=== PATIENT | female | born 1940 | race Caucasian/White ===

== ENCOUNTER 2017-04-07 09:16 | Emergency (ER) | payer MEDICARE, BC ==
--- NOTE | 2017-04-07 09:49 | ER Document Report ---
ED Neck/Back Problem - General Mode of Arrival: Medic Information source: Patient TRAVEL OUTSIDE OF THE [place] IN LAST 30 DAYS: No - HPI Patient complains to provider of: Pain, Lower back Associated symptoms: Other - see above - General Chief Complaint: Back Pain Stated Complaint: BACK PAIN Time Seen by Provider: 04/07/17 09:40 Notes: Patient is a 76 year old female with a history of chronic back pain presents to the ED via EMS with complaints of "unbearable" right lower back pain that radiates to her left lower back with onset this morning. Patient states she is now unable to ambulate. Patient has an appointment with her PCP but states the pain became unbearable which is why she called EMS. Patient states this morning she has a burning sensation from her low back that radiates up to her neck. Patient was doing a lot bending over yesterday. Patient was given 0.5 mg of Dilaudid and 4mg of Zofran by EMS while en route. Patient states she saw Dr. Smith, orthopedic surgeon for the back pain in her right back and hip and had 5 weeks of physical therapy with no relief. That ended approximately 2 weeks ago and she was then referred to Dr. Swan, Electrical Installation Inspector. She still does not have that appointment. (JOY MORRIS) - Related Data Allergies/Adverse Reactions: phenobarbital [Phenobarbital] Allergy (Mild, Verified 04/14/14 19:12) Hives Sulfa (Sulfonamide Antibiotics) Allergy (Mild, Verified 04/14/14 19:12) Hives moxifloxacin [Moxifloxacin] Allergy (Verified 04/14/14 19:12) moxifloxacin HCl [From Avelox] Allergy (Verified 04/14/14 19:12) Past Medical History - General Information source: Patient - Social History Smoking Status: Never Smoker Family History: CAD - Past Medical History Cardiac Medical History: Reports: Hx Coronary Artery Disease, Hx Hypercholesterolemia, Hx Hypertension Endocrine Medical History: Reports: Hx Hypothyroidism GI Medical History: Reports: Hx Gastroesophageal Reflux Disease, Hx Ulcer Musculoskeltal Medical History: Reports Hx Arthritis Past Surgical History: Reports: Hx Appendectomy, Hx Cholecystectomy, Hx Hysterectomy, Hx Tonsillectomy - Immunizations Hx Diphtheria, Pertussis, Tetanus Vaccination: Yes Hx Pneumococcal Vaccination: 08/24/08 Review of Systems - Review of Systems Constitutional: No symptoms reported EENT: No symptoms reported Cardiovascular: No symptoms reported Respiratory: No symptoms reported Gastrointestinal: No symptoms reported Genitourinary: No symptoms reported Female Genitourinary: No symptoms reported Musculoskeletal: See HPI, Back pain Skin: No symptoms reported Hematologic/Lymphatic: No symptoms reported Neurological/Psychological: No symptoms reported Physical Exam - General General appearance: Appears well, Alert In distress: None - HEENT Head: Normocephalic, Atraumatic Eyes: Normal Extraocular movements intact: Yes Pupils: PERRL - Respiratory Respiratory status: No respiratory distress - Cardiovascular Rhythm: Regular - Abdominal Distension: No distension - Back Back: Tender - in low back - Extremities General upper extremity: Normal inspection, Normal ROM General lower extremity: Normal inspection, Normal ROM. No: Edema - Neurological Neuro grossly intact: Yes - Psychological Associated symptoms: Depressed - Skin Skin Temperature: Warm Skin Moisture: Dry Skin Color: Normal Course - Re-evaluation Re-evalutation: 04/07/17 10:51 The patient's states that her back does feel better after some additional pain medication. Her relative is here now requesting MRI stating that her orthopedic doctor wanted her to get one. There is no emergent need for an MRI. They were advised that it can be done as an outpatient and if her doctor wanted an MRI, he should have ordered it. They state that he might have ordered it but no one has got back with her. She is advised to take pain medication as prescribed and not be bending over picking field peas or any other activity that could worsen her low back pain. ( LAINE SERRATO) - Vital Signs Vital signs: Temp Pulse Resp BP Pulse Ox 98.2 F 69 15 135/73 H 96 04/07/17 09:24 04/07/17 09:24 04/07/17 09:24 04/07/17 09:24 04/07/17 09:24 Discharge - Discharge Clinical Impression: Acute exacerbation of chronic low back pain Condition: Stable Disposition: HOME, SELF-CARE Additional Instructions: Your history and physical exam suggests that you exacerbated your chronic low back pain when you were bending over picking peas recently. You will be prescribed some pain medication to help with your discomfort. You should avoid doing activities that will make the back feel worse. Be sure to call Dr. Cooper to schedule your follow-up appointment, and call your orthopedic surgeon to inquire about the MRI he was requesting. RETURN TO THE EMERGENCY ROOM IF ANY NEW OR WORSENING SYMPTOMS. Prescriptions: Hydrocodone/Acetaminophen [[place] 5-325 mg Tablet] 1 tab PO Q4 PRN #15 tablet PRN Reason: Referrals: KIRTI LIRIANO MD [Primary Care Provider] - Follow up as needed Scribe Attestation: 04/07/17 10:57 I personally performed the services described in the documentation, reviewed and edited the documentation which was dictated to the scribe in my presence, and it accurately records my words and actions. (LAINE SERRATO) Scribe Documentation - Scribe Written by Liborio:: liborio Samson, 04/07/2017, 0953 acting as scribe for :: Lluvia
[2017-04-07] MEDS ORDERED: HYDROMORPHONE HCL INJ/PF 2 MG/ML AMPULE IV ONE (09:52)
[2017-04-07] MEDS ORDERED: KETOROLAC TROMETHAMINE INJ/PF 30 MG/1 ML SDV IV ONE (09:52)
[2017-04-07 11:29] VITALS: BP 130/78
== END 2017-04-07 11:30 | disposition home or self-care (01) ==
LOC: ER 09:16
DX: G89.29 Other chronic pain (principal); M54.5 Low back pain; I25.10 Atherosclerotic heart disease of native coronary artery without angina pectoris; E78.00 Pure hypercholesterolemia, unspecified; I10 Essential (primary) hypertension; Z88.2 Allergy status to sulfonamides; Z90.49 Acquired absence of other specified parts of digestive tract; Z90.710 Acquired absence of both cervix and uterus
CPT/HCPCS: 99283; 96374; 96375; J1885; J1170

== ENCOUNTER → 2017-05-08 | Outpatient (CLI) | payer MEDICARE, BC ==
--- NOTE | 2017-05-08 12:15 | RADIOLOGY REPORT (SQ) ---
EXAM DESCRIPTION: MRI LUMBAR SPINE WITHOUT COMPLETED DATE/TIME: 05/08/2017 11:37 am REASON FOR STUDY: LUMBAR RADICULOPATHY M54.17 RADICULOPATHY, LUMBOSACRAL REGION COMPARISON: None. TECHNIQUE: Sagittal and Axial imaging includes T1, T2, STIR and gradient echo sequences. Coronal T2/ HASTE imaging. LIMITATIONS: Motion. FINDINGS: VISUALIZED UPPER ABDOMEN: Limited evaluation. No acute or suspicious findings suggested. SEGMENTATION: No transitional anatomy. The lowest well-developed disc space is labeled L5-S1. ALIGNMENT: Mild convex left scoliosis. VERTEBRAE: Intact. BONE MARROW: No significant marrow abnormality. DISC SIGNAL: Desiccation multiple levels. POSTERIOR ELEMENTS: Intact. HARDWARE: None in the spine. CORD AND CONUS: Normal in size and signal intensity. Conus at the appropriate level. SOFT TISSUES: No aortic aneurysm seen. No bulky retroperitoneal adenopathy or mass. No paraspinal mas s or fluid. L1-L2: Small right paracentral disc protrusion contacts the transiting right L2 nerve root in the can al. L2-L3: No significant spinal stenosis or exit foraminal stenosis. L3-L4: Ventral and dorsal impression on the thecal sac due to disc osteophyte complex and ligament th ickening. Mild left and moderate right neural foraminal narrowing. L4-L5: Ventral impression on the thecal sac due to disc bulge. Facet arthropathy. Mild neural pawel inal narrowing. L5-S1: Small left paracentral and slight downward disc protrusion indenting the ventral margin of the thecal sac. There is contact with the transiting left S1 nerve root in the canal. Mild neural fora abel narrowing bilaterally. LOWER THORACIC: Incompletely imaged. No stenosis seen. SACRUM: Visualized upper sacrum intact. OTHER: No other significant findings. IMPRESSION: Spondylosis and facet arthropathy. Small disc herniations at L1-2 and L5-S1. TECHNICAL DOCUMENTATION: JOB ID: [id number] 2015 [employer]- All Rights Reserved
== END ==
LOC: RAD 10:24
PROVIDERS: ATTEND Chiropractor
DX: M54.17 Radiculopathy, lumbosacral region (principal)
CPT/HCPCS: 72148

== ENCOUNTER → 2017-07-02 | Outpatient (CLI) | payer MEDICARE, BC ==
--- NOTE | 2017-07-02 13:02 | RADIOLOGY REPORT (SQ) ---
EXAM DESCRIPTION: CHEST PA/LATERAL COMPLETED DATE/TIME: 07/02/2017 12:40 pm REASON FOR STUDY: SHORTNESS OF BREATH COMPARISON: 03/08/2016 EXAM PARAMETERS: NUMBER OF VIEWS: two views TECHNIQUE: Digital Frontal and Lateral radiographic views of the chest acquired. RADIATION DOSE: NA LIMITATIONS: none FINDINGS: LUNGS AND PLEURA: No opacities, masses or pneumothorax. No pleural effusion. MEDIASTINUM AND HILAR STRUCTURES: No masses or contour abnormalities. HEART AND VASCULAR STRUCTURES: Heart normal size. No evidence for failure. BONES: No acute findings. HARDWARE: None in the chest. OTHER: No other significant finding. IMPRESSION: NO SIGNIFICANT RADIOGRAPHIC FINDING IN THE CHEST. TECHNICAL DOCUMENTATION: JOB ID: [id number] [employer]- All Rights Reserved
[2017-07-02 13:35] LABS: ABSOLUTE BASOPHILS # (AUTO) 0.1 10^3/uL (0.0-0.2); ABSOLUTE EOSINOPHILS # (AUTO) 0.1 10^3/uL (0.0-0.6); ABSOLUTE LYMPHOCYTES (AUTO) 1.6 10^3/uL (0.5-4.7); ABSOLUTE MONOCYTES (AUTO) 0.5 10^3/uL (0.1-1.4); ABSOLUTE NEUT (AUTO) 4.1 10^3/uL (1.7-8.2); BASOPHILS % (AUTO) 0.9 % (0-2); EOSINOPHILS % (AUTO) 2.1 % (0-6); HEMATOCRIT 39.8 % (36.0-47.0); HEMOGLOBIN 13.5 g/dL (12.0-15.5); HGB HCT DIFFERENCE 0.7; LYMPHOCYTES % (AUTO) 24.9 % (13-45); MEAN CORPUSCULAR HEMOGLOBIN 28.1 pg (27.0-33.4); MEAN CORPUSCULAR HGB CONC 33.9 g/dL (32.0-36.0); MEAN CORPUSCULAR VOLUME 83 fl (80-97); MONOCYTES % (AUTO) 8.3 % (3-13); RED BLOOD COUNT 4.81 10^6/uL (3.72-5.28); RED CELL DISTRIBUTION WIDTH 13.6 % (11.5-14.0); SEGMENTED NEUTROPHILS % (AUTO) 63.8 % (42-78); WHITE BLOOD COUNT 6.5 10^3/uL (4.0-10.5)
[2017-07-02 13:56] LABS: ALANINE AMINOTRANSFERASE 30 U/L (9-52); ALBUMIN 4.4 g/dL (3.5-5.0); ALKALINE PHOSPHATASE 74 U/L (38-126); ANION GAP 12 (5-19); ASPARTATE AMINO TRANSFERASE 25 U/L (14-36); BILIRUBIN,DIRECT 0.3 mg/dL (0.0-0.4); BILIRUBIN,TOTAL 0.6 mg/dL (0.2-1.3); BLOOD UREA NITROGEN 11 mg/dL (7-20); CALCIUM 9.7 mg/dL (8.4-10.2); CARBON DIOXIDE 27 mmol/L (22-30); CHLORIDE 102 mmol/L (98-107); CREATININE RESULT 0.57 mg/dL (0.52-1.25); GLUCOSE 84 mg/dL (75-110); POTASSIUM 4.5 mmol/L (3.6-5.0); SODIUM 141.4 mmol/L (137-145); TOTAL PROTEIN 7.2 g/dL (6.3-8.2)
== END ==
LOC: OD 11:54
PROVIDERS: ATTEND Physician Assistant Medical
DX: R07.9 Chest pain, unspecified (principal); R06.02 Shortness of breath
CPT/HCPCS: 36415; 71020; 80053; 83880; 85025

== ENCOUNTER → 2017-10-21 | Outpatient (CLI) | payer MEDICARE, BC ==
--- NOTE | 2017-10-21 11:58 | RADIOLOGY REPORT (SQ) ---
EXAM DESCRIPTION: VENOUS UNILATERAL LOWER COMPLETED DATE/TIME: 10/21/2017 11:42 am REASON FOR STUDY: LLE PAIN M79.605 PAIN IN LEFT LEG R22.42 LOCALIZED SWELLING, MASS AND LUMP, LEFT LOWER LIMB COMPARISON: None. TECHNIQUE: Dynamic and static melgar scale and color images acquired of the left leg venous system. Se lected spectral images acquired with additional compression and augmentation maneuvers. The contralat eral common femoral vein and saphenofemoral junction were also imaged. Images stored on PACS. LIMITATIONS: None. FINDINGS: COMMON FEMORAL: Normal phasicity, compression and augmentation. No visualized echogenic ma terial on melgar scale. No defects on color images. FEMORAL: Normal compression and augmentation. No visualized echogenic material on melgar scale. No defe cts on color images. POPLITEAL: Normal compression, augmentation. No visualized echogenic material on melgar scale. No defec ts on color images. CALF VESSELS: Normal compression, augmentation. No visualized echogenic material on melgar scale. No de fects on color images. GSV and SSV: Normal compression, augmentation. No visualized echogenic material on melgar scale. No def ects on color images. ANY DEEP VENOUS INSUFFICIENCY: Not evaluated. ANY EVIDENCE OF POPLITEAL CYST: No. OTHER: No other significant finding. CONTRALATERAL COMMON FEMORAL VEIN AND SAPHENOFEMORAL JUNCTION: Normal phasicity, compression and augmentation. No visualized echogenic material on melgar scale. No de fects on color images. IMPRESSION: NO EVIDENCE DVT OR SVT IN THE LEFT LEG. TECHNICAL DOCUMENTATION: JOB ID: [id number] [employer]- All Rights Reserved Reading location - IP/workstation name: [email or web address]
== END ==
LOC: SP 11:02
PROVIDERS: ATTEND Family Medicine
DX: M79.605 Pain in left leg (principal); R22.42 Localized swelling, mass and lump, left lower limb
CPT/HCPCS: 93971

== ENCOUNTER → 2017-12-17 | Outpatient (CLI) | payer MEDICARE, BC ==
--- NOTE | 2017-12-17 14:26 | RADIOLOGY REPORT (SQ) ---
EXAM DESCRIPTION: MRI LUMBAR SPINE WITHOUT COMPLETED DATE/TIME: 12/17/2017 1:01 pm REASON FOR STUDY: OTHER INTERVERTEBRAL DISC DISORDERS, LUMBAR REGION M51.86 OTHER INTERVERTEBRAL DI SC DISORDERS, LUMBAR REGION COMPARISON: 05/08/2017. TECHNIQUE: Sagittal and Axial imaging includes T1, T2, STIR and gradient echo sequences. Coronal T2/ HASTE imaging. LIMITATIONS: None. FINDINGS: VISUALIZED UPPER ABDOMEN: Limited evaluation. No acute or suspicious findings suggested. SEGMENTATION: No transitional anatomy. The lowest well-developed disc space is labeled L5-S1. ALIGNMENT: Anatomic. VERTEBRAE: Intact. BONE MARROW: Normal. No marrow replacement or reactive changes. DISC SIGNAL: Decreased height and signal. POSTERIOR ELEMENTS: Generally intact. No pars defect evident. HARDWARE: None in the spine. CORD AND CONUS: Normal in size and signal intensity. Conus at the appropriate level. SOFT TISSUES: No aortic aneurysm seen. No bulky retroperitoneal adenopathy or mass. No paraspinal mas s or fluid. L1-L2: Mild right paracentral disc bulge. Right lateral recess stenosis. No significant spinal sten osis or exit foraminal stenosis. L2-L3: No significant spinal stenosis or exit foraminal stenosis. L3-L4: Diffuse posterior annular disc bulge, asymmetric to the right. Moderate facet arthropathy. M ild to moderate right lateral recess stenosis and exit foraminal stenosis. L4-L5: Minimal diffuse posterior annular disc bulge. Mild to moderate facet arthropathy. No signifi cant spinal stenosis or exit foraminal stenosis. L5-S1: Mild diffuse posterior annular disc bulge. Mild facet arthropathy. No significant spinal jessica nosis or exit foraminal stenosis. LOWER THORACIC: Incompletely imaged. No stenosis seen. SACRUM: Visualized upper sacrum intact. OTHER: No other significant findings. IMPRESSION: MULTILEVEL DEGENERATIVE CHANGES DESCRIBED. TECHNICAL DOCUMENTATION: JOB ID: [id number] [employer]- All Rights Reserved Reading location - IP/workstation name: [email or web address]
== END ==
LOC: RAD 12:03
PROVIDERS: ATTEND Neurological Surgery
DX: M51.86 Other intervertebral disc disorders, lumbar region (principal)
CPT/HCPCS: 72148

== ENCOUNTER → 2018-05-22 | Outpatient (CLI) | payer MEDICARE, BC ==
--- NOTE | 2018-05-22 14:13 | RADIOLOGY REPORT (SQ) ---
EXAM DESCRIPTION: MRI LUMBAR SPINE WITHOUT COMPLETED DATE/TIME: 05/22/2018 11:27 am REASON FOR STUDY: LUMBAR RADICULOPATHY M54.17 RADICULOPATHY, LUMBOSACRAL REGION COMPARISON: None. TECHNIQUE: Sagittal and Axial imaging includes T1, T2, STIR and gradient echo sequences. Coronal T2/ HASTE imaging. LIMITATIONS: None. FINDINGS: VISUALIZED UPPER ABDOMEN: Limited evaluation. No acute or suspicious findings suggested. SEGMENTATION: No transitional anatomy. The lowest well-developed disc space is labeled L5-S1. ALIGNMENT: Minimal convex left curvature. VERTEBRAE: Intact. BONE MARROW: Minimal reactive endplate edema at L3-4. DISC SIGNAL: Multilevel disc disease. POSTERIOR ELEMENTS: No pars defect. Fairly mild facet arthropathy. HARDWARE: None in the spine. CORD AND CONUS: Normal in size and signal intensity. Conus at the appropriate level. SOFT TISSUES: No aortic aneurysm seen. No bulky retroperitoneal adenopathy or mass. No paraspinal mas s or fluid. L1-L2: Disc height loss with bulge. Small focal right paracentral protrusion. No high-grade stenosi s. L2-L3: No significant spinal stenosis or exit foraminal stenosis. L3-L4: Disc bulge with broad eccentric right lateral extension. Flattening of the ventral thecal sac with asymmetric right lateral recess stenosis. Mild facet arthropathy with mild narrowing otherwise . Up to moderate right foraminal stenosis. L4-L5: Broad posterior protrusion mildly flattens the ventral thecal sac and contacts but does not di splace the L5 nerve roots. Mild facet arthropathy. Mild-moderate left foraminal narrowing. L5-S1: Broad disc bulge. Contact with the bilateral S1 nerve roots without displacement. Up to mode rate left foraminal narrowing. LOWER THORACIC: Incompletely imaged. No stenosis seen. SACRUM: Visualized upper sacrum intact. OTHER: No other significant findings. IMPRESSION: 1. Multilevel spondylosis. Mild scoliosis. No high-grade stenosis. No fracture or wor risome bone lesion. TECHNICAL DOCUMENTATION: JOB ID: [id number] [employer]- All Rights Reserved Reading location - IP/workstation name: [email or web address]
== END ==
LOC: RAD 10:37
PROVIDERS: ATTEND Chiropractor
DX: M54.17 Radiculopathy, lumbosacral region (principal)
CPT/HCPCS: 72148

== ENCOUNTER 2018-05-23 21:27 | Emergency (ER) | payer MEDICARE, BC ==
[2018-05-23] MEDS ORDERED: NORMAL SALINE 1000 ML 1,000 ML IV ONE (22:25)
[2018-05-23 22:39] LABS: ANION GAP 9 (5-19); BLOOD UREA NITROGEN 14 mg/dL (7-20); CALCIUM 9.2 mg/dL (8.4-10.2); CARBON DIOXIDE 26 mmol/L (22-30); CHLORIDE 104 mmol/L (98-107); GLUCOSE 120 mg/dL (75-110); POTASSIUM 3.6 mmol/L (3.6-5.0)
[2018-05-23 22:40] LABS: ABSOLUTE EOSINOPHILS # (AUTO) 0.1 10^3/uL (0.0-0.6); ABSOLUTE LYMPHOCYTES (AUTO) 1.7 10^3/uL (0.5-4.7); ABSOLUTE MONOCYTES (AUTO) 0.6 10^3/uL (0.1-1.4); ABSOLUTE NEUT (AUTO) 6.3 10^3/uL (1.7-8.2); BASOPHILS % (AUTO) 0.4 % (0-2); EOSINOPHILS % (AUTO) 1.5 % (0-6); HEMATOCRIT 41.2 % (36.0-47.0); HEMOGLOBIN 13.6 g/dL (12.0-15.5); LYMPHOCYTES % (AUTO) 19.2 % (13-45); MEAN CORPUSCULAR HEMOGLOBIN 27.9 pg (27.0-33.4); MEAN CORPUSCULAR HGB CONC 33.1 g/dL (32.0-36.0); MEAN CORPUSCULAR VOLUME 84 fl (80-97); MONOCYTES % (AUTO) 7.2 % (3-13); PLATELET COUNT 226 10^3/uL (150-450); RED BLOOD COUNT 4.89 10^6/uL (3.72-5.28); SEGMENTED NEUTROPHILS % (AUTO) 71.7 % (42-78); TOTAL CELLS COUNTED % (AUTO) 100 %; WHITE BLOOD COUNT 8.8 10^3/uL (4.0-10.5)
--- NOTE | 2018-05-23 23:41 | ER Document Report ---
ED General - General Chief Complaint: Dizziness Stated Complaint: DIZZY Time Seen by Provider: 05/23/18 21:59 Notes: Patient is a 77-year-old female presents with complaint of an episode where after protestant she is walking out and dropped her keys out of her left hand. Her friend went to mixing picker tender the keys. She then dropped him again and in her left arm started to jerk violently. She says that she had to go down to the ground with her left leg became more weak. She then felt as if the left side of her face was drawing to the side. She said she felt as if she is going to pass out but did not completely pass out. She is unsure how long this episode lasted. She said it lasted somewhere between 5 and 15 minutes. Patient says that she is never had an episode quite like this. She says she has chronic foot drop on the left foot as well as left lower extremity weakness has been ongoing for several months. Has been worked up by her primary care doctor. She has had MRIs of her spine as well as ultrasounds of the leg. They suspected nerve impingement but have not seen evidence of this just yet. They therefore referred her to a neurosurgeon. She saw Dr. Rojo at [facility]. She says that he plans on arranging for probable MRI of her neck. She says she thinks he supposed to get it later this week but is not completely sure. Upon arrival to the ER her symptoms have resolved and she otherwise feels well. She says she did have some nausea which was resolved by Zofran given to her by the paramedics. She had a associated mild headache. TRAVEL OUTSIDE OF THE [place] IN LAST 30 DAYS: No - Related Data Allergies/Adverse Reactions: phenobarbital [Phenobarbital] Allergy (Mild, Verified 04/14/14 19:12) Hives Sulfa (Sulfonamide Antibiotics) Allergy (Mild, Verified 04/14/14 19:12) Hives moxifloxacin [Moxifloxacin] Allergy (Verified 04/14/14 19:12) moxifloxacin HCl [From Avelox] Allergy (Verified 04/14/14 19:12) Past Medical History - Social History Smoking Status: Former Smoker Frequency of alcohol use: None Drug Abuse: None Family History: CAD Patient has suicidal ideation: No Patient has homicidal ideation: No - Past Medical History Cardiac Medical History: Reports: Hx Coronary Artery Disease, Hx Hypercholesterolemia, Hx Hypertension Denies: Hx Congestive Heart Failure, Hx Heart Attack, Hx Heart Murmur Pulmonary Medical History: Denies: Hx Asthma, Hx Bronchitis, Hx COPD, Hx Pneumonia, Hx Tuberculosis Neurological Medical History: Denies: Hx Cerebrovascular Accident, Hx Seizures Endocrine Medical History: Reports: Hx Hypothyroidism Renal/ Medical History: Denies: Hx Peritoneal Dialysis GI Medical History: Reports: Hx Gastroesophageal Reflux Disease, Hx Ulcer. Denies: Hx Hepatitis, Hx Hiatal Hernia Musculoskeletal Medical History: Reports Hx Arthritis Psychiatric Medical History: Denies: Hx Depression Infectious Medical History: Denies: Hx Hepatitis Past Surgical History: Reports: Hx Appendectomy, Hx Cholecystectomy, Hx Hysterectomy, Hx Tonsillectomy. Denies: Hx Mastectomy, Hx Open Heart Surgery, Hx Pacemaker - Immunizations Hx Diphtheria, Pertussis, Tetanus Vaccination: Yes Hx Pneumococcal Vaccination: 08/24/08 Review of Systems - Review of Systems Notes: My Normal Review Basic REVIEW OF SYSTEMS: CONSTITUTIONAL : Denies fever, chills, or sweats. Denies recent illness. EENT: Denies eye, ear, throat, or mouth pain or symptoms. Denies nasal or sinus congestion. CARDIOVASCULAR: Denies chest pain. RESPIRATORY: Denies cough, cold, or chest congestion. Denies shortness of breath, difficulty breathing, or wheezing. GASTROINTESTINAL: Denies abdominal pain. Denies nausea, vomiting, or diarrhea. Denies constipation. Last BM: MUSCULOSKELETAL: Denies neck or back pain or joint pain or swelling. SKIN: Denies rash or skin lesions. NEUROLOGICAL: Had episode of near loss of consciousness with severe jerking left arm. Has had weakness in her left leg and left arm now for several months. ALL OTHER SYSTEMS REVIEWED AND NEGATIVE. Physical Exam - Vital signs Vitals: Temp Pulse Resp BP Pulse Ox 98 F 78 18 154/83 H 94 05/23/18 22:40 05/23/18 22:40 05/23/18 22:40 05/23/18 22:40 05/23/18 22:40 - Notes Notes: General Appearance: Well nourished, alert, cooperative, no acute distress, no obvious discomfort. Well-appearing. Vitals: reviewed, See vital signs table. Head: no swelling or tenderness to the head Eyes: PERRL, EOMI, Conjuctiva clear Mouth: No decreasd moisture Throat: No tonsillar inflammation, No airway obstruction, No lymphadenopathy Neck: Supple, no neck tenderness, No thyromegaly Lungs: No wheezing, No rales, No rhonci, No accessory muscle use, good air exchange bilaterally. Heart: Normal rate, Regular rythm, No murmur, no rub Abdomen: Normal BS, soft, No rigidity, No abdominal tenderness, No guarding, no rebound, no abdominal masses, no organomegaly Extremities: good pulses in all extremities, no swelling or tenderness in the extremities, no edema. Skin: warm, dry, appropriate color, no rash Neuro: speech clear, oriented x 3, normal affect, responds appropriately to questions. Cranial nerves II through XII are intact. Distal sensation intact. Obvious foot drop on the left side. Right lower extremity has normal strength. Patient has good detective lieutenant strength bilaterally. Good strength with flexion extension of both elbows. Course - Re-evaluation Re-evalutation: 05/24/18 00:55 Patient has had a seizure. This is likely probably what happened earlier in the night as well before she came in. I have ordered Keppra. I do have a call out to neurosurgery at [facility] because of the finding of the brain tumor. I am waiting to hear back from [facility]. 05/24/18 01:07 I have called and spoke with Dr. Multani, neurosurgeon covering for Dr. Rojo. He agrees to accept the patient for transfer. He is agreeable with the Keppra. He says that this time he would not give her any Decadron. Patient currently receiving the Keppra. She states she feels as if she is to have another seizure so we will give her a dose of Ativan in the meantime to help prevent further seizures until the Keppra infusion is completed. 05/24/18 03:49 Since receiving the Keppra and Ativan patient is feeling well. She has not had any further seizures. Currently she is resting comfortably. She did wake up and talking says she feels well and has no concerns at this time. We are still waiting a bed assignment for [facility]. 05/24/18 06:42 [facility] said that she did have a bed available this morning after transfers and discharges. We are waiting for bed assignment. Patient continues to do well and has not had any further seizure activity. 05/24/18 06:43 - Vital Signs Vital signs: Temp Pulse Resp BP Pulse Ox 98 F 78 18 110/81 94 05/23/18 22:40 05/23/18 22:40 05/24/18 05:00 05/24/18 02:01 05/24/18 05:00 - Laboratory Result Diagrams: 05/23/18 21:53 05/23/18 21:53 Laboratory results interpreted by me: 05/23/18 21:53 Glucose 120 H - EKG Interpretation by Me Additional EKG results interpreted by me: 05/23/18 23:41 EKG #2 is reviewed and interpreted by me. EKG shows sinus rhythm with a rate of [address] segment elevation or depression. No ischemic T wave inversions. LA interval, QRS duration, QTc intervals are within normal range. Old EKG for comparison is from March 08, 2016. Discharge - Discharge Clinical Impression: Brain mass Condition: Stable Disposition: [facility] Referrals: LUIS ALVAREZ DC [Primary Care Provider] - Follow up as needed
--- NOTE | 2018-05-23 23:43 | RADIOLOGY REPORT (SQ) ---
EXAM DESCRIPTION: CT NECK ANGIOGRAPHY WITHOUT THEN WITH IV CONTRAST COMPLETED DATE/TME: 05/23/2018 22:25 CLINICAL HISTORY: 77 years Female, left sided weakness, neck pain Comparison: None. Technique: IV contrast. Coronal and sagittal reformat. This exam was performed according to our departmental dose-optimization program, which includes automated exposure control, adjustment of the mA and/or kV according to patient size and/or use of iterative reconstruction technique. [facility]: Dose Right [facility]: CareDose [facility]: Dose Right [facility]: Teradose 4D [facility]: [employer] Limitation: 3d reconstruction not yet available. Noncontrast images not available. LIMITATIONS: None Findings: CTA, head: Intact [place] [facility] [place]. No aneurysm. No occlusion. No vasculitides. CTA, neck: Intact carotid and vertebral arterial system. No internal carotid arterial stenosis/occlusion based on NASCET (or similar) criteria. Other: 4.1 x 3.1 x 3.4 cm macrolobulated well-defined enhancing mass of the right frontal lobe, mild diffuse vasogenic edema pattern of the right cerebral hemisphere, no mass effect, no midline shift. Intracranial neoplasm such as a astrocytoma is of first consideration. Differential etiologies include infectious, inflammatory, and neoplastic processes. Contrast MRI of the brain recommended. Indeterminate 2.2 cm right thyroid lesion. Thyroid ultrasound recommended. Impression: 1. A 4.1 cm mass of the right frontal lobe. Intracranial neoplasm such as a astrocytoma is of first consideration. Differential etiologies include infectious, inflammatory, and neoplastic processes. Cannot exclude a hemorrhagic component. Contrast MRI of the brain recommended. 2. Indeterminate 2.2 cm right thyroid lesion. Thyroid ultrasound recommended.
[2018-05-24] MEDS ORDERED: LEVETIRACETAM 1000 MG/NACL-ISO 1,000 MG/100 ML RTUPB IV ONE (00:49)
[2018-05-24] MEDS ORDERED: LORAZEPAM INJ 2 MG/1 ML VIAL ONE (01:07)
[2018-05-24] MEDS ORDERED: LORAZEPAM INJ 2 MG/1 ML VIAL IV ONE ×2 (01:07→01:20)
[2018-05-24] MEDS ORDERED: ACETAMINOPHEN 325 MG TABLET PO ONE ×3 (06:53→21:59)
[2018-05-24 07:56] LABS: APPEARANCE,URINE CLEAR; BILIRUBIN,URINE NEGATIVE (NEGATIVE); GLUCOSE, URINE NEGATIVE (NEGATIVE); KETONES,URINE NEGATIVE (NEGATIVE); LEUKOCYTE ESTERASE,URINE NEGATIVE (NEGATIVE); NITRITE,URINE NEGATIVE (NEGATIVE); PROTEIN,URINE NEGATIVE (NEGATIVE); URINE SPECIFIC GRAVITY 1.028; UROBILINOGEN,URINE NEGATIVE mg/dL (<2.0)
--- NOTE | 2018-05-24 07:56 | EKG REPORT ---
SEVERITY:- BORDERLINE ECG - SINUS RHYTHM PROBABLE LEFT ATRIAL ABNORMALITY BORDERLINE LEFT AXIS DEVIATION : Confirmed by: Ryland Huynh 24-May-2018 07:55:19
[2018-05-24 08:05] LABS: COLOR,URINE YELLOW
[2018-05-24] MEDS: LEVETIRACETAM 500 MG TABLET PO SCH ×2 (10:16→22:03)
[2018-05-24] MEDS ORDERED: DEXAMETHASONE SOD PHOS INJ 10 MG/1 ML VIAL IV ONE (22:01)
[2018-05-25 02:30] VITALS: BP 119/71
[2018-05-25] MEDS ORDERED: ACETAMINOPHEN 325 MG TABLET PO ONE (02:31)
== END 2018-05-25 02:30 | disposition short-term general hospital (02) ==
LOC: ER 21:27
DX: D49.6 Neoplasm of unspecified behavior of brain (principal); R56.9 Unspecified convulsions; R53.1 Weakness; M21.372 Foot drop, left foot; M79.605 Pain in left leg; R11.0 Nausea; R51 Headache; I25.10 Atherosclerotic heart disease of native coronary artery without angina pectoris; I10 Essential (primary) hypertension; Z88.2 Allergy status to sulfonamides; Z88.8 Allergy status to other drugs, medicaments and biological substances; Z88.1 Allergy status to other antibiotic agents
CPT/HCPCS: 93005; 99285; 96361; 96375; 96365; 36415; 85025; 80048; 81001; 84484; 70496; 70498; 93010; A9270 ×3; J2060; J1100; J1953